=== PATIENT | male | born 1990 | race Two or more races ===

== ENCOUNTER 2019-05-29 06:36 | Emergency (ER) | payer MEDICAID, OTHER ==
[~2019-05-29] VITALS: Ht 177.8 cm; Wt 80.0 kg
[2019-05-29] MEDS ORDERED: PERTUSS(ACELL),DIPH,TET VAC/PF 0.5 ML VIAL IM ONE (07:00)
[2019-05-29] MEDS ORDERED: SODIUM CHLORIDE 0.9% 250 ML IRRIG SOLUTION BOTTLE IRRIG ONE (07:00)
[2019-05-29] MEDS ORDERED: ONDANSETRON HCL 4 MG/2 ML VIAL IVP ONE (08:00)
[2019-05-29] MEDS ORDERED: MORPHINE SULFATE 4 MG/ML SYRINGE IVP ONE (08:00)
[2019-05-29 08:35] VITALS: BP 151/97
== END 2019-05-29 08:47 | disposition short-term general hospital (02) ==
LOC: EMS 06:36
DX: S52.092A Other fracture of upper end of left ulna, initial encounter for closed fracture (principal); S06.6X9A Traumatic subarachnoid hemorrhage with loss of consciousness of unspecified duration, initial encounter; S01.01XA Laceration without foreign body of scalp, initial encounter; M25.512 Pain in left shoulder; F17.210 Nicotine dependence, cigarettes, uncomplicated; Z88.5 Allergy status to narcotic agent; Z88.6 Allergy status to analgesic agent; V29.9XXA Motorcycle rider (driver) (passenger) injured in unspecified traffic accident, initial encounter; Y93.89 Activity, other specified; Y92.488 Other paved roadways as the place of occurrence of the external cause; Y99.8 Other external cause status
CPT/HCPCS: 70450; 71045; 72125; 73030; 73080; 73090; 90471; 90715; 96374; 96375; 99285; J0690; J2270; J2405

== ENCOUNTER 2019-10-16 11:53 | Emergency (ER) | payer MEDICAID ==
[~2019-10-16] VITALS: Ht 175.3 cm; Wt 90.9 kg
[2019-10-16] MEDS ORDERED: AMOX TR/POT CLAV 875 MG/125 MG TABLET PO ONE (13:15)
[2019-10-16 14:24] VITALS: BP 142/83
== END 2019-10-16 15:34 | disposition home or self-care (01) ==
LOC: EMS 12:12
DX: S62.616A Displaced fracture of proximal phalanx of right little finger, initial encounter for closed fracture (principal); S62.666A Nondisplaced fracture of distal phalanx of right little finger, initial encounter for closed fracture; S01.511A Laceration without foreign body of lip, initial encounter; L08.89 Other specified local infections of the skin and subcutaneous tissue; F17.210 Nicotine dependence, cigarettes, uncomplicated; Z88.6 Allergy status to analgesic agent; W01.0XXA Fall on same level from slipping, tripping and stumbling without subsequent striking against object, initial encounter; Y93.01 Activity, walking, marching and hiking; Y92.89 Other specified places as the place of occurrence of the external cause; Y99.8 Other external cause status

== ENCOUNTER 2020-11-16 02:06 | Emergency (ER) | payer MEDICAID ==
[~2020-11-16] VITALS: Ht 175.3 cm; Wt 95.0 kg
[2020-11-16 03:26] VITALS: BP 135/73
== END 2020-11-16 03:30 | disposition home or self-care (01) ==
LOC: EMS 02:08
DX: S83.91XA Sprain of unspecified site of right knee, initial encounter (principal); S93.601A Unspecified sprain of right foot, initial encounter; F17.210 Nicotine dependence, cigarettes, uncomplicated; Z88.6 Allergy status to analgesic agent; Z88.5 Allergy status to narcotic agent; X58.XXXA Exposure to other specified factors, initial encounter; Y93.89 Activity, other specified; Y92.89 Other specified places as the place of occurrence of the external cause; Y99.8 Other external cause status
CPT/HCPCS: 99284; 73562-TC; 73630-TC; Z7502

== ENCOUNTER 2020-12-25 13:59 | Emergency (ER) | payer MEDICAID | END 2020-12-25 14:34 | disposition left against medical advice (07) | LOC: EMS 13:59 | DX: M79.671 Pain in right foot (principal); Z53.21 Procedure and treatment not carried out due to patient leaving prior to being seen by health care provider ==